=== PATIENT | female | born 1950 | race Caucasian/White ===

== ENCOUNTER 2022-10-10 07:15 | Day surgery (SDC) | payer BC ==
[~2022-10-10] VITALS: Ht 157.5 cm; Wt 68.0 kg
[~2022-10-10 07:15] MED LIST: ceFAZolin SODIUM 2 GM in D5W 50 ML IV ONE
[2022-10-10] MEDS ORDERED: METOCLOPRAMIDE HCL 10 MG/2 ML VIAL ONE (11:58)
[2022-10-10] MEDS ORDERED: ONDANSETRON HCL 4 MG/2 ML VIAL ONE (11:58)
[2022-10-10] MEDS ORDERED: BUPIVACAINE /PF 0.25% 30 ML VIAL INJ ONE (11:58)
[2022-10-10] MEDS ORDERED: NS IRRIG SOLN 1000 ML IR ONE (11:58)
[2022-10-10] MEDS ORDERED: SUCCINYLCHOLINE CHLORIDE 20 MG/ML(QUELICIN) ONE (11:58)
[2022-10-10] MEDS ORDERED: DEXAMETHASONE SOD PHOSPHATE 4 MG/ML VIAL ONE (11:58)
[2022-10-10] MEDS ORDERED: LR 1,000 ML IV.SOLN IV ONE (11:58)
[2022-10-10] MEDS ORDERED: fentaNYL CITRATE/PF 100 MCG/2 ML AMP ONE (11:58)
[2022-10-10] MEDS ORDERED: DESFLURANE 15 MIN GAS INH ONE (11:58)
[2022-10-10] MEDS ORDERED: PROPOFOL 200MG/ 20ML VIAL (DIPRIVAN) IV ONE (11:58)
[2022-10-10] MEDS ORDERED: SUGAMMADEX SODIUM 200 MG/2 ML VIAL IV ONE (11:58)
[2022-10-10] MEDS ORDERED: ROCURONIUM BROMIDE 10 MG/ML (ZEMURON) ONE (11:58)
[2022-10-10] MEDS ORDERED: KETOROLAC TROMETHAMINE 30 MG VIAL ONE (11:58)
[2022-10-10] MEDS ORDERED: MORPHINE 4 MG INJ. 4 MG/ML VIAL IVP PRN ×3 (12:30)
[2022-10-10] MEDS ORDERED: ONDANSETRON HCL 4 MG/2 ML VIAL IVP PRN (12:30)
[2022-10-10] MEDS ORDERED: MORPHINE 4 MG INJ. 4 MG/ML VIAL ONE (13:56)
[2022-10-10 16:28] VITALS: BP_SYST 142
== END 2022-10-10 15:55 | disposition home or self-care (01) ==
LOC: SDS 07:15 → SMU 07:16 → SDS 15:55
PROVIDERS: ATTEND Family Medicine
DX: K42.0 Umbilical hernia with obstruction, without gangrene (principal); I10 Essential (primary) hypertension; E11.9 Type 2 diabetes mellitus without complications; E78.2 Mixed hyperlipidemia; Z79.899 Other long term (current) drug therapy; Z20.822 Contact with and (suspected) exposure to COVID-19
CPT/HCPCS: 36415; 49594; 88302; U0003; J3490 ×2; J1100; J1885; J2765; J2405; J2704; J0330; J3010; J2270; J7060; J7120; C1781